=== PATIENT | male | born 1985 | race Caucasian/White ===

== ENCOUNTER 2017-12-10 13:46 | Emergency (ER) | payer OTHER ==
[~2017-12-10] VITALS: Ht 180.3 cm; Wt 79.4 kg
[2017-12-10 15:49] VITALS: BP 154/86
[2017-12-10] MEDS ORDERED: HYDROcodone-ACET 10/325MG TAB PO ONE ×3 (16:15→19:15)
[2017-12-10] MEDS ORDERED: HYDROcodone-ACET 5/325MG TAB PO ONE (19:15)
== END 2017-12-10 16:15 | disposition home or self-care (01) ==
LOC: ER 13:51
DX: S09.90XA Unspecified injury of head, initial encounter (principal); Y08.89XA Assault by other specified means, initial encounter; Y93.89 Activity, other specified; Y99.8 Other external cause status; Y92.89 Other specified places as the place of occurrence of the external cause
CPT/HCPCS: 70450; 70486; 72125